=== PATIENT | female | born 1975 | race African-American/Black ===

== ENCOUNTER 2024-01-14 04:14 | Day surgery (SDC) | payer OTHER ==
[2024-01-08 12:54] VITALS: BMI 29.5
[2024-01-14] MEDS ORDERED: PROPOFOL 20 ML ONE (14:53)
[2024-01-14] MEDS ORDERED: MIDAZOLAM HCL 2 MG/2 ML SINGLE DOSE VIAL ONE (14:55)
[2024-01-14] MEDS ORDERED: FENTANYL CITRATE/PF 50 MCG/ML VIAL ONE ×3 (14:56→16:09)
[2024-01-14] MEDS: ceFAZolin SODIUM 1 GM VIAL IVPB ONE (15:15)
[2024-01-14] MEDS ORDERED: ceFAZolin SODIUM 1 GM VIAL ONE (15:30)
[2024-01-14] MEDS ORDERED: ONDANSETRON 4 MG/2 ML VIAL IVPUSH PRN (16:07)
[2024-01-14] MEDS: ACETAMINOPHEN 1000 MG/100 ML BAG IVPB ONE (16:47)
[2024-01-14] MEDS: FAMOTIDINE 20 MG PREMIXED IVPB IVPB ONE (16:50)
[2024-01-14] MEDS: FAMOTIDINE 20 MG/50 ML IVPB 20 MG/50 ML MG IVPB ONE (16:50)
[2024-01-14 17:27] VITALS: RESP 18
[2024-01-14 19:01] VITALS: BP 117/71; PULSE 79; TEMP 97.5
== END 2024-01-14 19:03 | disposition home or self-care (01) ==
LOC: JASU-SURG 04:14
PROVIDERS: ATTEND Obstetrics & Gynecology
PROC: 0UDB8ZX Extraction of Endometrium, Via Natural or Artificial Opening Endoscopic, Diagnostic (ICD-10-PCS; principal; 2024-01-14 14:00)
DX: N95.0 Postmenopausal bleeding (principal); N88.2 Stricture and stenosis of cervix uteri
CPT/HCPCS: 81025; 88305-TC; 93005; 93010; 94760; J0131